=== PATIENT | female | born 1950 | race Caucasian/White ===

== ENCOUNTER → 2021-01-07 | Outpatient (CLI) | payer MEDICARE, OTHER ==
[~2021-01-07] MED LIST: BACTROBAN OINT22 GM EXT; CEPHALEXIN500 M1 PO; FLOVENT DISKUS50 MCG INH
== END ==
LOC: RAD 11:35
DX: R07.81 Pleurodynia (principal); M25.561 Pain in right knee
CPT/HCPCS: 71101; 73562

== ENCOUNTER → 2021-10-01 | Outpatient (CLI) | payer MEDICARE, OTHER | LOC: HEART 5 12:00 | DX: J44.9 Chronic obstructive pulmonary disease, unspecified (principal) | CPT/HCPCS: 94060; 94729 ==